=== PATIENT | female | born 1925 | race Caucasian/White ===

== ENCOUNTER 2016-10-23 11:31 | Emergency (ER) | payer OTHER ==
[~2016-10-23] VITALS: Ht 172.7 cm; Wt 65.0 kg
[2016-10-23 11:37] VITALS: BP 189/79; PULSE 72; RESP 16; TEMP 98; O2SAT 99
[2016-10-23] MEDS ORDERED: BYST5TAB2 PO (11:44)
[2016-10-23] MEDS ORDERED: AMLO5CAP PO (11:44)
[2016-10-23] MEDS ORDERED: LOVA20TA PO (11:44)
[2016-10-23] MEDS ORDERED: VIST25CA PO (11:52)
[2016-10-23] MEDS ORDERED: PRED20 PO (11:52)
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
[2016-10-23] MEDS ORDERED: predniSONE 20 MG TAB PO ONE (12:00)
[2016-10-23] MEDS ORDERED: diphenhydrAMINE HCL 50 MG/ML VIAL IM ONE (12:00)
[2016-10-23] MEDS ORDERED: DEXAMETHASONE SOD PHOS 20 MG/5 ML VIAL IM ONE (12:00)
[2016-10-23] MEDS ORDERED: predniSONE 20 MG TAB PO SCH (21:00)
== END 2016-10-23 12:11 | disposition home or self-care (01) ==
LOC: PHEFT 11:31
DX: L50.9 Urticaria, unspecified (principal)
CPT/HCPCS: 96372; 99284; J1100; J1200